=== PATIENT | male | born 1980 | race American Indian/Alaskan Native ===

== ENCOUNTER 2019-07-07 07:23 | Emergency (ER) | payer SELFPAY ==
--- NOTE | 2019-07-07 08:05 | Emergency Department Report ---
ED General Adult HPI - General Chief complaint: Psych Stated complaint: SI Time Seen by Provider: 07/07/19 07:55 Source: patient Mode of arrival: Ambulatory Limitations: No Limitations - History of Present Illness Initial comments: The patient presents to the emergency department with a chief complaint of suicidal ideation. Patient states he has a history of schizophrenia and has not had his medications in over a week. Patient states his medications include Prozac, Zyprexa, and Depakote. Patient states his voices are telling him to hurt himself but he has no exact plan. -: Gradual, week(s) (1) Severity scale (0 -10): 0 Consistency: constant Improves with: none Worsens with: none Associated Symptoms: denies other symptoms Treatments Prior to Arrival: none - Related Data Home Medications Medication Instructions Recorded Confirmed Last Taken Depakote ER 07/07/19 Unknown FLUoxetine [PROzac] 20 mg PO QDAY 07/07/19 07/07/19 06/30/19 ZyPREXA 07/07/19 Unknown traZODone 07/07/19 Unknown Allergies Allergy/AdvReac Type Severity Reaction Status Date / Time No Known Allergies Allergy Unverified 07/07/19 07:33 ED Review of Systems ROS: Stated complaint: SI Other details as noted in HPI Comment: All other systems reviewed and negative Constitutional: denies: chills, fever Eyes: denies: eye pain, eye discharge, vision change ENT: denies: ear pain, throat pain Respiratory: denies: cough, shortness of breath, wheezing Cardiovascular: denies: chest pain, palpitations Endocrine: no symptoms reported Gastrointestinal: denies: abdominal pain, nausea, diarrhea Genitourinary: denies: urgency, dysuria Musculoskeletal: denies: back pain, joint swelling, arthralgia Skin: denies: rash, lesions Neurological: denies: headache, weakness, paresthesias Psychiatric: suicidal thoughts. denies: anxiety, depression, auditory h allucinations, visual hallucinations, homicidal thoughts Hematological/Lymphatic: denies: easy bleeding, easy bruising ED Past Medical Hx - Past Medical History Hx Psychiatric Treatment: Yes (SHIZOPHRENIC/ BIPOLAR) - Surgical History Past Surgical History?: No - Social History Smoking Status: Current Every Day Smoker Substance Use Type: None - Medications Home Medications: Home Medications Medication Instructions Recorded Confirmed Last Taken Type Depakote ER 07/07/19 Unknown History FLUoxetine [PROzac] 20 mg PO QDAY 07/07/19 07/07/19 06/30/19 History ZyPREXA 07/07/19 Unknown History traZODone 07/07/19 Unknown History ED Physical Exam - General Limitations: No Limitations General appearance: alert, in no apparent distress - Head Head exam: Present: atraumatic, normocephalic - Eye Eye exam: Present: normal appearance, PERRL - ENT ENT exam: Present: mucous membranes moist - Neck Neck exam: Present: normal inspection - Respiratory Respiratory exam: Present: normal lung sounds bilaterally. Absent: respiratory distress - Cardiovascular Cardiovascular Exam: Present: regular rate, normal rhythm. Absent: systolic murmur, diastolic murmur, rubs, gallop - GI/Abdominal GI/Abdominal exam: Present: soft, normal bowel sounds. Absent: distended, tenderness - Rectal Rectal exam: Present: deferred - Extremities Exam Extremities exam: Present: normal inspection - Back Exam Back exam: Present: normal inspection - Neurological Exam Neurological exam: Present: alert, oriented X3, CN II-XII intact. Absent: motor sensory deficit - Psychiatric Psychiatric exam: Present: depressed, flat affect, suicidal ideation - Skin Skin exam: Present: warm, dry, intact, normal color. Absent: rash ED Course Vital Signs 07/07/19 07:37 Temperature 98.6 F Pulse Rate 97 H Respiratory 18 Rate Blood Pressure 125/84 O2 Sat by Pulse 98 Oximetry ED Medical Decision Making - Lab Data Result diagrams: 07/07/19 08:08 07/07/19 08:08 - Medical Decision Making Patient is medically cleared Mental health evaluation done Awaiting final placement Critical care attestation.: If time is entered above; I have spent that time in minutes in the direct care of this critically ill patient, excluding procedure time. ED Disposition Clinical Impression: Suicidal ideation Disposition: [id number] PSY HOSP/PSY UNIT Is pt being admited?: No Does the pt Need Aspirin: No Condition: Stable
[2019-07-07 09:03] LABS: Basophils % (Auto) 0.2 % (0.0-1.8); Eosinophils % (Auto) 0.1 % (0.0-4.3); Hematocrit 41.1 % (35.5-45.6); Hemoglobin 14.3 gm/dl (11.8-15.2); Lymphocytes # (Auto) 1.2 K/mm3 (1.2-5.4); Lymphocytes % (Auto) 13.1 % (13.4-35.0); Mean Corpuscular HGB Conc 35 % (32-34); Mean Corpuscular Volume 88 fl (84-94); Monocytes # (Auto) 0.9 K/mm3 (0.0-0.8); Monocytes % (Auto) 9.1 % (0.0-7.3); Platelet Count 308 K/mm3 (140-440); Red Blood Count 4.66 M/mm3 (3.65-5.03)
[2019-07-07 09:19] LABS: BUN/Creatinine Ratio 13; Blood Urea Nitrogen 10 mg/dL (9-20); Calcium 9.3 mg/dL (8.4-10.2); Hemolysis Index 5
[2019-07-07 10:54] LABS: Bilirubin,Urine NEG (Negative); Blood,Urine NEG (Negative); Color,Urine Yellow (Yellow); Mucus,Urine FEW /HPF; Protein,Urine <15 mg/dL mg/dL (Negative); Urobilinogen,Urine < 2.0 mg/dL (<2.0); WBC,Urine < 1.0 /HPF (0.0-6.0)
[2019-07-07 10:55] LABS: Amphetamine Screen,Urine PRESUMPTIVE NEGATIVE; Benzodiazepines Screen,Urine PRESUMPTIVE NEGATIVE; Cannabinoid Screen,Urine PRESUMPTIVE NEGATIVE; Cocaine Screen,Urine PRESUMPTIVE NEGATIVE; Methadone Screen,Urine PRESUMPTIVE NEGATIVE; Opiate Screen,Urine PRESUMPTIVE NEGATIVE
[2019-07-08 08:06] VITALS: BP 116/83
--- NOTE | 2019-07-08 11:10 | Consultation ---
History of Present Illness - Reason for Consult Consult date: 07/08/19 Reason for consult: Suicidal - Chief Complaint Chief complaint: Hearing voices, depressed and suicidal - History of Present Psychiatric Illness The patient is 39yo single unemployed male with history of Schizophrenia. He presents to the ED with c/o hearing voices, depressed and suicidal thoughts with no plans. He reports that he takes Zyprexa, Prozac, Depakote and Trazodone but has been off his meds for over a week now. He wants to get back on his medica tions. He continues to feel suicidal this morning. Patient denies panic attacks, recurrent nightmares or flashbacks. Patient denies symptoms suggestive of OCD or PTSD. He completely denies homicidal thoughts. PAST PSYCHIATRIC HISTORY: Diagnoses: Schizophrenia Suicide attempts or Self-harm behavior: yes Prior psychiatric hospitalizations: yes Substance Abuse history: Methamphetamine Outpatient treatment: No Family Psychiatric History None reported or documented SOCIAL HISTORY Marital Status: Single Living Arrangements: Alone Employment Status: Unemployed Access to guns/weapons: Patient denies Education: 12 grade History of Abuse: Patient denies Legal History: Patient denies ROS: Constitutional: Negative for weight loss ENT: Negative for stridor Respiratory: Negative for cough or hemoptysis All other systems reviewed and are negative MENTAL STATUS General Appearance and Behavior: age appropriate, good eye contact, cooperative with questioning and polite Cooperation: Cooperative Psychomotor Behavior: within normal limits Mood: depressed Affect and affective range: Congruent with stated mood Thought Process: Fluent/Logical and Goal-directed Thought Content: Auditory hallucinations Speech: Normal volume and Regular rate and rhythm Intellectual Functioning Average Suicidal Ideation: Positive for SI Homicidal Ideation: Denies HI Impulse Control: intact Insight and Judgment: normal insight and judgment Memory: Normal Attention: Normal Orientation: alert and oriented Diagnosis: Paranoid Schizophrenia RECOMMENDATIONS MEDICATIONS: Restart home meds Zyprexa, Prozac, Depakote and Trazodone Risks, benefits and alternatives of medications discussed with the patient, questions answered and consent obtained from patient. PSYCHOTHERAPY: Supportive psychotherapy provided MEDICAL: Per primary team SENIOR AUDIT MANAGER: Yes DISPOSITION: Acute inpatient psychiatric hospitalization when medically stable LEGAL STATUS: 1013 FOLLOW-UP: Will follow The patient agreed on the treatment plan, understood the risk, benefit, alternative treatment, potential consequence of no treatment, and gave informed consent. Please contact with any questions and/or concerns. Medications and Allergies Allergies Allergy/AdvReac Type Severity Reaction Status Date / Time No Known Allergies Allergy Unverified 07/07/19 07:33 Home Medications Medication Instructions Recorded Confirmed Last Taken Type Depakote ER 07/07/19 Unknown History FLUoxetine [PROzac] 20 mg PO QDAY 07/07/19 07/07/19 06/30/19 History ZyPREXA 07/07/19 Unknown History traZODone 07/07/19 Unknown History Mental Status Exam - Vital signs Last Vital Signs Temp 97.9 F 07/08/19 08:05 Pulse 62 07/08/19 08:05 Resp 20 07/08/19 08:05 BP 116/83 07/08/19 08:05 Pulse Ox 99 07/08/19 08:05 Results Result Diagrams: 07/07/19 08:08 07/07/19 08:08 All other labs normal. Assessment and Plan - Psychiatric problem (1) Paranoid schizophrenia Current Visit: Yes Status: Acute
[2019-07-08] MEDS ORDERED: FLUoxetine 20 MG CAP PO SCH (12:00)
[2019-07-08] MEDS ORDERED: DIVALPROEX DR 250 MG TAB PO SCH (12:00)
[2019-07-08] MEDS ORDERED: traZODone 50 MG TAB PO PRN (22:00)
== END 2019-07-08 13:33 ==
LOC: EEVIPCON 07:23 → ED 07:23
DX: R45.851 Suicidal ideations (principal); F31.9 Bipolar disorder, unspecified; F20.9 Schizophrenia, unspecified; Z79.899 Other long term (current) drug therapy; F17.200 Nicotine dependence, unspecified, uncomplicated
CPT/HCPCS: 36415; 80048; 80164; 80307; 80320; 81001; 85025; G0480